=== PATIENT | female | born 1955 | race Caucasian/White ===

== ENCOUNTER 2024-03-01 10:40 | Observation (INO) | payer MEDICARE, OTHER ==
[2024-03-01] VITALS (13 sets, daily range): BP systolic 97–159; BP diastolic 64–119
[~2024-03-01] VITALS: Ht 157.5 cm; Wt 56.9 kg
[~2024-03-01 10:40] MED LIST: ADMELOG SO100 UNIT/2 SQ; ALEN70 PO; AMLO5 PO; ATOR40TA PO; Aspir 8181 MG PO; BASAGLAR K100 UNIT/1 SC; CLOP75 PO; ERGO400 PO; LOSA50 PO; METF500 PO; OZEMPIC0.25 MG/02 SQ
[2024-03-01] MEDS ORDERED: Heparin Sodium 1000 Units/ML 10ML MDV ONE ×2 (14:52→15:34)
[2024-03-01] MEDS ORDERED: NS 250 ML IV ONE (14:52)
[2024-03-01] MEDS ORDERED: NS 1,000 ML IV ONE ×2 (14:52→15:29)
[2024-03-01] MEDS ORDERED: NS 100 ML IV ONE (15:15)
[2024-03-01] MEDS ORDERED: Midazolam HCl 1MG / ML 2ML Vial ONE ×3 (15:28→16:25)
[2024-03-01] MEDS ORDERED: FentaNYL Citrate 50 MCG/ML 2 ML Injection ONE ×3 (15:29→16:26)
[2024-03-01] MEDS ORDERED: HydrALAZINE HCl 20 MG / ML 1ML Vial ONE (16:43)
[2024-03-01] MEDS ORDERED: Prochlorperazine Edisylate 10 mg Vial IV PRN (17:25)
[2024-03-01] MEDS ORDERED: Melatonin 3 MG Tab PO PRN (17:25)
[2024-03-01] MEDS ORDERED: Prochlorperazine Maleate 5 MG Tab PO PRN (17:25)
[2024-03-01] MEDS ORDERED: Ondansetron HCl 2 MG / ML 2ML Vial IV PRN (17:30)
[2024-03-01] MEDS ORDERED: Magnesium Hydroxide Conc 10 ML UDC PO PRN (17:30)
[2024-03-01] MEDS ORDERED: Bisacodyl 10 MG Supp PR PRN (17:30)
[2024-03-01] MEDS ORDERED: Ondansetron 4 MG TAB PO PRN (17:30)
[2024-03-01] MEDS ORDERED: FentaNYL Citrate 50 MCG/ML 2 ML Injection IV PRN (17:35)
--- NOTE | 2024-03-01 18:23 | NUR ---
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 States her was with her the last time she had this procedure done and he about 1.5 years ago. She is lying flat, left groin site covered in CHG dressing and without bleeding, bruising, hematoma nor tenderness. She has no c/o pain. Pulses palpated in the LLE pedal, doppled on the RLE. Cap refill is <3 seconds on toes of both feet. Lung sounds are clear, heart sounds are regular, and NSR noted on property assessment monitor, 96 bpm. Blood pressure variable but overall it is stable. Reviewed home medications with the patient. CBG was taken, and she was given food and drink after placed in reverse trendelenberg to keep the LLE straight. Denies any nausea. Call light given, and instructions for its use were given to her. She verbalized understanding of calling for assistance, and also that HOB cannot be raised until 1900, and then only slowly and OOB at 1999.
[2024-03-01] MEDS ORDERED: TRAZ50 PO (19:33)
[2024-03-01] MEDS ORDERED: TraZODone HCl 50 MG Tab PO PRN (19:55)
[2024-03-01] MEDS ORDERED: Insulin Glargine-Yfgn 100 Unit/mL 3 ML SYR SC SCH (21:00)
[2024-03-01] MEDS ORDERED: AmLODIPine Besylate 5 MG Tab PO SCH (21:00)
[2024-03-01] MEDS ORDERED: Docusate Sodium 100 MG Cap PO SCH (21:00)
[2024-03-01] MEDS ORDERED: Losartan Potassium 50 MG Tab PO SCH (21:00)
[2024-03-01] MEDS ORDERED: Insulin Human Lispro 100 Units/ML 3ML Syringe SC SCH (21:00)
[2024-03-02 03:22] VITALS: BP 129/86
--- NOTE | 2024-03-02 05:03 | NUR ---
SHIFT SUMMARY PT A&O X4, ABLE TO MAKE NEEDS KNOWN, COOPERATIVE WITH CARE. PT IS QUITE ANXIOUS ABOUT BEING DISCHARGED TOMORROW SHE WANTS TO BE ABLE TO GET HOME TO TAKE CARE OF HER PETS. VSS, AFEBRILE, TELE SHOWS SR 90S-100S. LS CLEAR, SPO2 > 90% ON RA. L GROIN SITE RECOVERED AND IS FREE FROM BLEEDING, HEMATOMA, BRUISING, OR TENDERNESS. PULSE OF R LE FOUND WITH DOPPLER, CAPILLARY REFILL LESS THAN 3 SECONDS ON ALL EXTREMITIES. PT DENIES SOB OR CP. PT IS RESTING QUIETLY IN BED, CALL LIGHT WITHIN REACH, BREATHING EVEN AND UNLABORED.
--- NOTE | 2024-03-02 07:39 | NUR ---
Telephone communication with Dr. Keller; he plans to see the patient this morning before she is discharged.
[2024-03-02 07:43] VITALS: BP 127/79
[2024-03-02] MEDS ORDERED: Insulin NPH 100 Unit / ML 10ML Vial SC ONE (08:45)
[2024-03-02] MEDS ORDERED: Clopidogrel Bisulfate 75 MG Tab PO SCH (09:00)
[2024-03-02] MEDS ORDERED: Aspirin 81 MG TabEC PO SCH (09:00)
[2024-03-02] MEDS ORDERED: Insulin Glargine-Yfgn 100 Unit/mL 3 ML SYR SC SCH (09:00)
[2024-03-02] MEDS ORDERED: Atorvastatin 40 MG Tab PO SCH (09:00)
[2024-03-02] MEDS ORDERED: Enoxaparin 40 MG/0.4 ML SYR SC SCH (09:00)
--- NOTE | 2024-03-02 09:54 | NUR ---
"Spiritual Care Visit| Pt. Request Pt. is awake and welcmes my visit. Pt. verbalizes that she antici[ates being discharged very soon. Facilitated a short life review. Pt. is very pleasant. Prayed with Pt. Pt. verbalized gratitdue for the spiriutal care visit."
[2024-03-02] MEDS ORDERED: Insulin Human Lispro 100 Units/ML 3ML Syringe SC ONE (12:00)
--- NOTE | 2024-03-02 13:08 | NUR ---
1300 Pt was accompanied to walk out to the pt pickup/drop off area for her taxi ride which was to arrive between [id number]. She said that she felt fine, thanked everyone for their care and said that she was very appreciative.
--- NOTE | 2024-03-02 13:26 | NUR ---
DISCHARGE SUMMARY PT WAS GIVEN WRITTEN AND VERBAL DISCHARGE INSTRUCTIONS. PT TO CONTINUE HOME MEDICATION REGIMEN, NO NEW PRESCRIPTIONS GIVEN. IV WAS REMOVED AND COVERED WITH GAUZE AND COBAN. TELE PATCHES REMOVED. ALL BELONINGS WERE SENT HOME WITH THE PT. PT WAS WALKED TO THE EXIT AND TRANSPORTED HOME VIA TAXI.
== END 2024-03-02 12:58 | disposition home or self-care (01) ==
LOC: MHTC 10:40 → EDSTATUS 11:00 → MHTC 11:00 → PCU 17:32 → MHTC 17:32 → PCU 17:33
PROVIDERS: ADMIT Physician Assistant
DX: E11.51 Type 2 diabetes mellitus with diabetic peripheral angiopathy without gangrene (principal); E11.22 Type 2 diabetes mellitus with diabetic chronic kidney disease; N18.30 Chronic kidney disease, stage 3 unspecified; I10 Essential (primary) hypertension; E78.5 Hyperlipidemia, unspecified; Z87.891 Personal history of nicotine dependence; Z79.4 Long term (current) use of insulin; Z79.82 Long term (current) use of aspirin; Z79.84 Long term (current) use of oral hypoglycemic drugs; Z79.85 Long-term (current) use of injectable non-insulin antidiabetic drugs; Z79.02 Long term (current) use of antithrombotics/antiplatelets; Z79.899 Other long term (current) drug therapy
CPT/HCPCS: 75625; 75716; 75774; 76937; 82947; 93005; 93010; 99152; 99153; A9270; C1725; C1760; C1769; C1887; C1894; C2623; C9764; G0378; J0360; J1644; J1650; J1815; J2250; J3010; J7030; J7050; Q9967